=== PATIENT | male | born 1985 | race Caucasian/White ===

== ENCOUNTER 2022-05-05 21:25 | Emergency (ER) | payer OTHER, BC ==
[2022-05-05 21:31] VITALS: BP 119/83; PULSE 65; RESP 17; TEMP 98; BMI 23.0
== END 2022-05-05 22:06 | disposition home or self-care (01) ==
LOC: JERFT 21:25
DX: T75.4XXA Electrocution, initial encounter (principal)
CPT/HCPCS: 93005; 93010; 99283-25